=== PATIENT | male | born 1990 | race Caucasian/White ===

== ENCOUNTER 2021-09-25 17:59 | Emergency (ER) | payer BC ==
[~2021-09-25] VITALS: Ht 187.9 cm; Wt 140.6 kg
[~2021-09-25 17:59] MED LIST: KEFLEX500 MG PO; MOTRIN800 MG PO
[2021-09-25] MEDS ORDERED: HYDROCODONE-AC1 EAC1 PO (21:11)
== END 2021-09-25 21:36 | disposition home or self-care (01) ==
LOC: ED 17:59
DX: S92.222A Displaced fracture of lateral cuneiform of left foot, initial encounter for closed fracture (principal); V29.9XXA Motorcycle rider (driver) (passenger) injured in unspecified traffic accident, initial encounter; Y93.89 Activity, other specified; Y92.89 Other specified places as the place of occurrence of the external cause; Y99.8 Other external cause status

== ENCOUNTER → 2021-10-08 | Outpatient (CLI) | payer BC ==
[~2021-10-08] MED LIST changes: +HYDROCODONE-AC1 EAC1 PO
== END | disposition home or self-care (01) ==
LOC: MRI 09:54
PROVIDERS: ATTEND Orthopaedic Surgery
DX: S92.245A Nondisplaced fracture of medial cuneiform of left foot, initial encounter for closed fracture (principal); S93.622A Sprain of tarsometatarsal ligament of left foot, initial encounter; X58.XXXA Exposure to other specified factors, initial encounter; Y93.89 Activity, other specified; Y92.89 Other specified places as the place of occurrence of the external cause; Y99.8 Other external cause status

== ENCOUNTER 2022-03-06 09:52 | Emergency (ER) | payer BC ==
[~2022-03-06] VITALS: Wt 136.1 kg
[2022-03-06] MEDS ORDERED: POLYSPORIN OINT15 GM T (12:03)
[2022-03-06] MEDS ORDERED: HYDROCODONE-AC1 EAC1 PO (12:03)
[2022-03-06] MEDS ORDERED: CEPHALEXIN500 M1 PO (12:03)
[2022-03-06] MEDS ORDERED: NAPROXEN250 MG PO (12:03)
== END 2022-03-06 12:13 | disposition home or self-care (01) ==
LOC: ED 09:52
DX: S30.811A Abrasion of abdominal wall, initial encounter (principal); S40.812A Abrasion of left upper arm, initial encounter; S40.811A Abrasion of right upper arm, initial encounter; S70.312A Abrasion, left thigh, initial encounter; S70.311A Abrasion, right thigh, initial encounter; V86.99XA Unspecified occupant of other special all-terrain or other off-road motor vehicle injured in nontraffic accident, initial encounter; Y93.89 Activity, other specified; Y92.89 Other specified places as the place of occurrence of the external cause; Y99.8 Other external cause status

== ENCOUNTER → 2022-03-16 | Outpatient (CLI) | payer BC ==
[~2022-03-16] MED LIST changes: +CEPHALEXIN500 M1 PO; +NAPROXEN250 MG PO; +POLYSPORIN OINT15 GM T
== END | disposition home or self-care (01) ==
LOC: ORTHO 01:19
PROVIDERS: ATTEND Orthopaedic Surgery
DX: S80.01XA Contusion of right knee, initial encounter (principal); X58.XXXA Exposure to other specified factors, initial encounter; Y93.89 Activity, other specified; Y92.89 Other specified places as the place of occurrence of the external cause; Y99.8 Other external cause status

== ENCOUNTER 2022-04-09 17:06 | Emergency (ER) | payer BC ==
[~2022-04-09] VITALS: Wt 140.6 kg
[2022-04-09] MEDS ORDERED: TYLENOL325 M1 PO (18:05)
[2022-04-09] MEDS ORDERED: NAPROXEN250 MG PO (18:05)
[2022-04-10] MEDS ORDERED: TYLENOL325 M1 PO (12:35)
[2022-04-10] MEDS ORDERED: NAPROXEN250 MG PO (12:35)
== END 2022-04-09 18:20 | disposition home or self-care (01) ==
LOC: ED 17:06
DX: S70.11XA Contusion of right thigh, initial encounter (principal); V86.99XA Unspecified occupant of other special all-terrain or other off-road motor vehicle injured in nontraffic accident, initial encounter; Y93.89 Activity, other specified; Y92.89 Other specified places as the place of occurrence of the external cause; Y99.8 Other external cause status

== ENCOUNTER 2022-06-19 11:58 | Emergency (ER) | payer BC ==
[~2022-06-19] VITALS: Ht 182.8 cm; Wt 113.4 kg
[~2022-06-19 11:58] MED LIST changes: +TYLENOL325 M1 PO
[2022-06-19] MEDS ORDERED: NAPROSYN500 MG PO (13:04)
== END 2022-06-19 13:15 | disposition home or self-care (01) ==
LOC: ED 11:58
DX: S83.412A Sprain of medial collateral ligament of left knee, initial encounter (principal); Z79.899 Other long term (current) drug therapy; Z79.2 Long term (current) use of antibiotics; X58.XXXA Exposure to other specified factors, initial encounter; Y93.89 Activity, other specified; Y92.89 Other specified places as the place of occurrence of the external cause; Y99.8 Other external cause status

== ENCOUNTER 2022-12-24 20:23 | Emergency (ER) | payer BC ==
[~2022-12-24] VITALS: Ht 187.9 cm; Wt 146.1 kg
[~2022-12-24 20:23] MED LIST changes: +NAPROSYN500 MG PO
[2022-12-24] MEDS ORDERED: LISINOPRIL20 MG PO (20:38)
[2022-12-24] MEDS ORDERED: ZIPRASIDONE HCL20 M1 PO (20:38)
[2022-12-24] MEDS ORDERED: HYDROCHLOROTH12.5 M2 PO (20:39)
[2022-12-24] MEDS ORDERED: FLUVOXAMINE PO (20:40)
[2022-12-24 21:05] LABS: BASO % 0.3 % (0.0-1.0); EOS # 0.3 10*3/uL (0.0-0.4); EOS % 2.5 % (1.0-4.0); HEMATOCRIT 44.9 % (42.0-52.0); LYMPH # 3.7 10*3/uL (1.3-4.4); LYMPH % 35.5 % (27.0-41.0); MEAN CELL VOLUME 81.3 fl (80.0-94.0); MEAN CORPUSCULAR HGB 26.3 pg (27.0-31.0); MEAN CORPUSCULAR HGB CONC 32.3 g/dl (33.0-37.0); MEAN PLATELET VOLUME 9.5 fl (9.6-12.3); MONO # 0.6 10*3/uL (0.1-1.0); MONO % 5.3 % (3.0-9.0); NEUT # 5.9 10*3/uL (2.3-7.9); NEUT % 56.2 % (47.0-73.0); PLATELET COUNT AUTOMATED 333 10*3/uL (130-400); RED BLOOD COUNT 5.52 10*6/uL (4.50-5.90); RED CELL DISTRI WIDTH 13.3 % (0-14.5); WHITE BLOOD COUNT 10.5 10*3/uL (4.8-10.8)
[2022-12-24 21:22] LABS: ALKALINE PHOSPHATASE 69 U/L (46-116); BUN 15 mg/dl (9-23); CHLORIDE 105 mmol/L (98-107); SGPT/ALT 43 U/L (10-49); TOTAL PROTEIN 7.5 gm/dL (6.0-8.0)
== END 2022-12-25 00:14 | disposition home or self-care (01) ==
LOC: ED 20:23
PROVIDERS: Internal Medicine
DX: R00.0 Tachycardia, unspecified (principal); I10 Essential (primary) hypertension; F41.9 Anxiety disorder, unspecified; F32.A Depression, unspecified; Z91.040 Latex allergy status; Z98.890 Other specified postprocedural states

== ENCOUNTER → 2023-06-23 | Outpatient (CLI) | payer BC ==
[~2023-06-23] MED LIST changes: +FLUVOXAMINE PO; +HYDROCHLOROTH12.5 M2 PO; +LISINOPRIL20 MG PO; +ZIPRASIDONE HCL20 M1 PO
== END | disposition home or self-care (01) ==
LOC: RAD 01:14
PROVIDERS: ATTEND Orthopaedic Surgery
DX: M25.531 Pain in right wrist (principal)

== ENCOUNTER 2024-01-25 18:27 | Emergency (ER) | payer BC ==
[~2024-01-25] VITALS: Ht 187.9 cm; Wt 149.7 kg
[2024-01-25] MEDS ORDERED: AMOX-CLAV 875-1 EACH PO (19:31)
== END 2024-01-25 19:49 | disposition home or self-care (01) ==
LOC: ED 18:27
DX: J02.0 Streptococcal pharyngitis (principal); F17.210 Nicotine dependence, cigarettes, uncomplicated; Z91.040 Latex allergy status; Z79.899 Other long term (current) drug therapy

== ENCOUNTER 2024-09-01 11:07 | Emergency (ER) | payer BC ==
[~2024-09-01 11:07] MED LIST changes: +AMOX-CLAV 875-1 EACH PO
[2024-09-01] MEDS ORDERED: Acetaminophen/Oxycodone 5 MG/325 MG TABLET PO ONE (11:30)
[2024-09-01] MEDS ORDERED: MELOXICAM15 MG PO (11:50)
== END 2024-09-01 11:58 | disposition home or self-care (01) ==
LOC: ED 11:07
DX: S93.402A Sprain of unspecified ligament of left ankle, initial encounter (principal); I10 Essential (primary) hypertension; F41.9 Anxiety disorder, unspecified; F32.A Depression, unspecified; Z91.040 Latex allergy status; X50.1XXA Overexertion from prolonged static or awkward postures, initial encounter; Y93.89 Activity, other specified; Y92.89 Other specified places as the place of occurrence of the external cause; Y99.8 Other external cause status